=== PATIENT | male | born 1955 | race Caucasian/White ===

== ENCOUNTER 2019-02-10 08:23 | Observation (INO) ==
--- NOTE | 2019-02-10 11:08 | Cardiology Progress Note ---
Date of Service February 10, 2019 Results & Data Vital Signs (Past 12 Hours) Vital Signs Temp Pulse Resp BP Pulse Ox 02/10/19 08:55 36.7 C 72 20 160/98 H 97
--- NOTE | 2019-02-10 11:15 | Cardiology Consultation ---
Date of Consultation February 10, 2019 Assessment & Plan (1) Crescendo angina: Patient with increasing angina despite good medical therapies with recent stress testing reflecting increased ischemia in comparison to prior studies. Patient has known diffuse coronary artery disease. Plan given failed medical therapies to proceed with diagnostic cardiac catheterization assess for interventional targets. Procedure and risks explained in detail with the patient through the use of director economic. Informed consent obtained for procedure, coronary intervention if indicated and sedation. (2) CAD (coronary artery disease): (3) HTN (hypertension): (4) Dyslipidemia: (5) Abnormal nuclear stress test: History of Present Illness Reason for Consultation: Patient is a 63-year-old male [place]ican-speaking past medical history is notable for 1. Atherosclerotic coronary disease status post chronic bypass grafting 2001 for diffuse coronary artery disease receiving a MAZARIEGOS graft to the LAD diagonal, saphenous vein graft to the left anterior ascending saphenous vein graft sequentially to OM1 and posterior descending artery 2. Ischemic cardiomyopathy with old anterior infarct EF 4045% 3. Repeat cardiac catheterization May 2012 demonstrating occluded left internal mammary artery with patent grafts and diffuse coronary disease 4. Chronic class III angina pectoris 5. Hypertension 6. Chronic hepatic enzyme elevation with past intolerant of statin Patient presents today on referral after recent symptoms of worsening chest pain shortness of breath and angina pectoris. Patient is failed outpatient medical therapies on multiple times and recent stress testing reflected stress-induced inferior ischemia superimposed on prior known LV dysfunction. He is referred now for repeat coronary angiography to assess for interventional targets Requesting Physician: Nesha Sahu PA-C Attending Physician: Ezequiel Hay MD Allergies Allergy/AdvReac Type Severity Reaction Status Date / Time metoprolol Allergy Severe SHORTNESS Verified 01/30/19 11:09 OF BREATH-"STUFFY" NOSE carvedilol Allergy Unknown UNKNOWN Verified 01/30/19 11:09 REACTION ezetimibe [From Zetia] Allergy Unknown UNKNOWN Verified 01/30/19 11:09 REACTION pravastatin Allergy Unknown UNKNOWN Verified 01/30/19 11:09 REACTION Penicillins AdvReac Unknown "RENAL" Verified 01/30/19 11:09 PAIN Home Medications Home Medications Medication Instructions Recorded Confirmed Type amlodipine 2.5 mg PO DAILY 01/30/19 02/10/19 History losartan 50 mg PO DAILY 01/30/19 02/10/19 History aspirin [Aspir-81] 81 mg PO DAILY 02/10/19 02/10/19 History Patient History Medical History CAD (coronary artery disease) (Chronic) S/P CABG X4 (2001)- MAZARIEGOS-DX, SVG-LAD, SVG-OM, SVG- PDA AT [facility] Dyslipidemia (Chronic) Gastritis (Chronic) PRESCRIBED PPI BY GI GERD (gastroesophageal reflux disease) (Chronic) Hearing deficit (Chronic) HEARING AIDS HTN (hypertension) (Chronic) Insomnia Ischemic cardiomyopathy (Chronic) Numbness of leg LLE Obesity (Chronic) Osteoarthritis Prediabetes (Chronic) Surgical History History of cardiac cath 2012 [facility] History of cholecystectomy 05/17/1819 Grade 1 view with Glidescope 3 History of colonoscopy History of coronary artery bypass graft S/P CABG (2001) History of esophagogastroduodenoscopy (EGD) History of fracture of finger FRACTURE REPAIR; SUBSEQUENT I&D, LACERATION REPAIR OF OPEN LEFT 2ND DIGIT FRACTURE= 01/09/16= LMA#5 AT [facility] History of tonsillectomy History of tooth extraction Social History Preferred Language: [place]ican Communication Ability: Effective Tenant Selector Required: Yes Beliefs That Will Affect Care: None Current Living Situation: Spouse Current Living Situation Comment: Feels Safe at Home: Yes Safety Concerns: Feels Safe At This Time Smoking Status: Never smoker Second Hand Exposure: No ; Hx Alcohol Use: No Hx Substance Use: No Review of Systems Review of Systems: All systems reviewed & are unremarkable except as noted in HPI & below Physical Exam Constitutional: WD/WN, vitals as above + obese Eyes: PERRL, conjunctivae normal, anicteric sclerae ENMT: external ear and nose normal, oropharynx normal Neck: trachea midline, no thyromegaly + thick neck Respiratory: normal respiratory effort, lungs clear to auscultation Cardiovascular: Rate/Rhythm: regular rate and regular rhythm Heart Sounds: normal S1 and normal S2; no gallop and no murmur Palpation: normal PMI Vessels: normal carotid upstroke and radial pulses present; no JVD and no carotid bruit Extremities: no edema Gastrointestinal (Abdomen): normal bowel sounds, soft, nontender, no hepatosplenomegaly Musculoskeletal: no cyanosis or clubbing, extremities motor strength 5/5 Skin: no rashes, warm and dry Neurologic: PERRL, EOMI, accommodation nl, no face palsy, no dysarthria Psychiatric: A+Ox3, euthymic affect Results & Data Vital Signs (Past 12 Hours) Vital Signs Temp Pulse Resp BP Pulse Ox 02/10/19 08:55 36.7 C 72 20 160/98 H 97
[2019-02-10] MEDS ORDERED: NITROGLYCERIN/D5W 100MCG/ML 20ML SYR ONE (11:29)
[2019-02-10] MEDS ORDERED: MIDAZOLAM HCL 1 MG/ML 2ML VIAL ONE (11:29)
[2019-02-10] MEDS ORDERED: NiCARDipine HCL INJ 2.5 MG/ML 10 ML AMP ONE (11:29)
[2019-02-10] MEDS ORDERED: HEPARIN (PORCINE) 1000 UNIT/ML 10 ML (CATH LAB USE ONLY) ONE (11:29)
[2019-02-10] MEDS ORDERED: fentaNYL citrate 100 MCG/2 ML VIAL ONE (11:29)
--- NOTE | 2019-02-10 12:01 | Pre Anesthesia Assessment ---
Date of Service February 10, 2019 Pre Sedation Assessment Vital Signs Temp Pulse Resp BP Pulse Ox 02/10/19 08:55 36.7 C 72 20 160/98 H 97 Cardiovascular RRR, no murmur, no edema Respiratory normal respiratory effort, lungs clear to auscultation Pre-Sedation Airway Assessment Smoking Status: Never smoker Short, Thick Neck: No Thyromental Distance: > or= 3.5 Finger Breadths Oral Cavity: + WNL Mallampati Class: III ASA: ASA3 NPO Status Date of Last Intake of Fluids: 02/09/19 Date of Last Intake of Solid Food: 02/09/19 Notes The planned sedation has been discussed with the patient. Informed Consent was obtained. I have identified the patient, determined the appropriateness of sedation and have assessed the patient immediately prior to the procedure. All medicine(s) and interventions are by my order.
[2019-02-10] MEDS ORDERED: ACETAMINOPHEN 325 MG TAB PO PRN (13:20)
--- NOTE | 2019-02-10 13:26 | Cardiac Catheterization ---
Cardiac Cath Procedure: Brief Procedure Date February 10, 2019 Pre-Procedure Diagnosis Pre-Procedure Diagnosis: Angina and Positive Stress Test AUC Score AUC Score: 8 Post-Procedure Diagnosis Post-Procedure Diagnosis: Severe CAD Procedure(s) Performed Procedure(s) Performed: Coronary Angiography Obstetrics Technician Ezequiel Hay MD Freight Clerk(s) Karin Spaulding Estimated Blood Loss Estimated Blood Loss: <25 Medication(s) Medication(s): Fentanyl (12.5 mcg IV x 2), Heparin (5000 units IV), Lidocaine 1% (Local infiltration access site), Nicardipine (250 mcg intra-arterial after arterial sheath insertion and prior to removal) and Versed (1 mg IV x2) Preliminary Findings Right dominant coronary anatomy Severe [place] vessel coronary artery disease with 100% occlusion of the left anterior descending, left circumflex and distal right coronary artery Intact saphenous vein graft to left anterior descending Intact saphenous vein graft to the obtuse marginal and posterior descending artery with ostial narrowing of 50% Recommendations Recommendations: Medical Therapy and/or Counseling Specimens Specimens: None Fluids (cc crystalloids) Fluids (cc crystalloids): 115 Anesthesia Start time 1205, stop time 1302 Procedural Complication(s) None Disposition Recovery Room\PACU
--- NOTE | 2019-02-10 15:08 | Cardiac Catheterization ---
Cardiac Cath Procedure Full Procedure Date February 10, 2019 Pre-Procedure Diagnosis Pre-Procedure Diagnosis: Angina and Positive Stress Test AUC Score AUC Score: 8 Post-Procedure Diagnosis Post-Procedure Diagnosis: Severe CAD Procedure(s) Performed Procedure(s) Performed: Coronary Angiography Electronic Organ Technician Ezequiel Hay MD Bushing And Broach Operator(s) Karin Spaulding Estimated Blood Loss Estimated Blood Loss: <25 Medication(s) Medication(s): Fentanyl (12.5 mcg IV x 2), Heparin (5000 units IV), Lidocaine 1% (Local infiltration access site), Nicardipine (250 mcg intra-arterial after arterial sheath insertion and prior to removal) and Versed (1 mg IV x2) Summary of Findings Right dominant coronary anatomy Severe [place] vessel coronary artery disease with 100% occlusion of the proximal to mid left anterior descending, very proximal left circumflex and distal right coronary artery Intact saphenous vein graft to left anterior descending Intact saphenous vein graft to the obtuse marginal and posterior descending artery with ostial narrowing of 50% Right coronary artery in comparison to prior study demonstrates thrombotic mid vessel stenosis of 80% and complete occlusion at the acute margin. Hemodynamics Rest Ao:: 120/80/100 Final Ao: 122/71/96 LV: 120/18 Recommendations Recommendations: Medical Therapy and/or Counseling Specimens Specimens: None Radiation Exposure (mGy) 3629 Contrast (mls) 180 Fluids (cc crystalloids) Fluids (cc crystalloids): 115 Anesthesia Start time 1205, stop time 1302 Procedural Complication(s) None Disposition Recovery Room\PACU I attest to the content of the Intraoperative Record and any orders documented therein. Any exceptions are noted below. ACC Data: Cloth Cutter Cardiac Status Clinical evaluation leading to the procedure CAD Presenation: Positive Stress Test and Stable angina Anginal Classification: CCS III Heart Failure: No Cardiogenic Shock within 24 Hours: No Cardiac Arrest within 24 Hours: No Imaging Studies Past 6 Months: Yes Stress Studies Past 6 Months: Yes Standard Exercise Test: No Stress Echocardiogram: No Stress Testing w/SPECT MPI: Yes - Positive Coronary Anatomy Dominant: Right Left Main (% Stenosis): Ostial (20) LAD (% Stenosis): Proximal (70) and Mid (100%) D1 (% Stenosis): Proximal (80 with diffuse disease small vessel) Circumflex (% Stenosis): Ostial (100%) RCA (% Stenosis): Mid (80% thrombotic) and Distal (100% at acute margin) Grafts - LAD (%): Normal Grafts - Circumflex (%): Ostial (50%) Diagnostic Physicians Name: Ezequiel Hay MD Status: Elective Closure Device Percutaneous Entry Location: Radial Closure Device: Radial Band Recommendations: Medical Therapy and/or Counseling
[2019-02-10] MEDS ORDERED: ATROPINE SULFATE 0.1 MG/ML 10ML SYR IV ONE (16:17)
[2019-02-10] MEDS ORDERED: NITROGLYCERIN SL 0.4 MG/TAB TAB SL PRN (17:39)
--- NOTE | 2019-02-10 17:45 | Cardiology Progress Note ---
Date of Service February 10, 2019 Subjective Patient post diagnostic cardiac catheterization in the recovery area had an area of bleeding at initial access site which became controlled with hemo-band refill. During observation. However patient developed episode of acute bradycardia and vasovagal event responding to IV fluids. Still lightheaded on standing though blood pressure adequate EKG currently without acute changes Plan: Given severe coronary artery disease and transient postprocedural hemodynamic instability admit to telemetry for medication adjustments, maintain telemetry overnight Lab work and EKG ordered for morning Ultimate goals ongoing medical management Results & Data Vital Signs (Past 12 Hours) Vital Signs Temp Pulse Resp BP Pulse Ox 02/10/19 17:32 68 20 131/83 94 02/10/19 17:16 68 20 124/71 94 02/10/19 17:00 68 20 129/78 94 02/10/19 16:45 70 20 119/67 94 02/10/19 16:30 68 20 114/79 94 02/10/19 16:20 67 20 111/67 94 02/10/19 16:18 56 L 20 95/58 L 94 02/10/19 16:15 62 20 120/78 94 02/10/19 16:00 66 20 119/80 94 02/10/19 15:45 66 20 120/78 94 02/10/19 15:30 66 20 124/80 94 02/10/19 15:15 69 20 124/73 94 02/10/19 15:00 72 20 100/76 94 02/10/19 14:45 76 20 116/76 94 02/10/19 14:30 76 20 110/81 93 02/10/19 14:15 76 20 128/80 93 02/10/19 14:00 73 20 125/82 93 02/10/19 13:45 78 20 130/84 96 02/10/19 13:30 75 20 132/89 95 02/10/19 13:15 73 20 139/84 95 02/10/19 13:10 68 20 121/79 94 02/10/19 08:55 36.7 C 72 20 160/98 H 97
[2019-02-10] MEDS: AMLODIPINE BESYLATE 5 MG TAB PO SCH (21:11)
[2019-02-10] MEDS: SODIUM CHLORIDE 0.9% 1000ML 1,000 ML IV SCH (21:18)
[2019-02-11] MEDS: SODIUM CHLORIDE 0.9% 1000ML 1,000 ML IV SCH (06:48)
[2019-02-11] MEDS: AMLODIPINE BESYLATE 5 MG TAB PO SCH (08:18)
[2019-02-11] MEDS: ISOSORBIDE DINITRATE 20 MG TAB PO SCH ×2 (08:18→12:03)
[2019-02-11 08:23] LABS: Basophils # (auto) 0.02 K/uL (0-0.2); Basophils % (auto) 0.5 %; Eosinophils # (auto) 0.15 K/uL (0-0.5); Eosinophils % (auto) 3.7 %; Hematocrit (blood only) 45.2 % (42-52); Hemoglobin 15.5 g/dL (14.0-18.0); Immature Granulocytes # (auto) 0.01 K/uL (0.00-0.02); Immature Granulocytes % (auto) 0.2 %; Lymphocytes # (auto) 1.73 K/uL (1.2-3.4); Mean Corpuscular Hemoglobin 31.9 pg (25-34); Mean Corpuscular Hgb Conc 34.3 g/dL (32-36); Mean Platelet Volume 9.4 fL (7.4-10.4); Monocytes # (auto) 0.42 K/uL (0.11-0.59); Monocytes % (auto) 10.4 %; Neutrophils # (auto) 1.69 K/uL (1.4-6.5); Neutrophils % (auto) 42.2 %; Platelet Count 166 K/uL (130-400); RDW Coefficient of Variation 13.2 % (11.5-14.5); RDW Standard Deviation 45.3 fL (36.4-46.3); Red Blood Count 4.86 M/uL (4.7-6.1); White Blood Count 4.02 K/uL (4.8-10.8)
[2019-02-11 08:54] LABS: BUN Creatinine Ratio 10.2 (10-20); Calcium 9.1 mg/dl (8.5-10.1); Est GFR (African American) 99.5; Est GFR (Non-African American) 85.8
[2019-02-11] MEDS ORDERED: ASPIRIN 81 MG ECTAB PO SCH (09:00)
[2019-02-11 12:39] VITALS: BP 113/67; PULSE 66; TEMP 97.9; O2SAT 95
--- NOTE | 2019-02-11 13:31 | Cardiology Progress Note ---
Date of Service February 11, 2019 Assessment & Plan (1) Crescendo angina: Cardiac catheterization demonstrated severe [place] vessel disease without surgical or interventional targets. Plan will be to intensification of medical therapies. Specifically amlodipine increased to 2.5 mg twice per day. Isosorbide added at 20 mg p.o. twice daily. Patient already with sublingual nitroglycerin prescription for home. Patient to continue aspirin (2) CAD (coronary artery disease): (3) HTN (hypertension): (4) Dyslipidemia: (5) Abnormal nuclear stress test: Subjective Patient seen and examined, chart, medications, telemetry reviewed Patient is doing well this morning no acute complaints ambulatory in room and hallway without chest pain or shortness of breath. Right radial access site healed without bleeding or hematoma Mild headache but otherwise no complaints. Blood pressures well controlled on current medical regimen Physical Exam Constitutional: WD/WN, vitals as above + obese Eyes: PERRL, conjunctivae normal, anicteric sclerae ENMT: Mallampati Class: III Neck: trachea midline, no thyromegaly + thick neck Respiratory: normal respiratory effort, lungs clear to auscultation Cardiovascular: RRR, no murmur, no edema Rate/Rhythm: regular rate and regular rhythm Heart Sounds: normal S1 and normal S2; no gallop and no murmur Palpation: normal PMI Vessels: normal carotid upstroke and radial pulses present; no JVD and no carotid bruit Extremities: no edema Gastrointestinal (Abdomen): normal bowel sounds, soft, nontender, no hepatosplenomegaly Musculoskeletal: no cyanosis or clubbing, extremities motor strength 5/5 Skin: no rashes, warm and dry Neurologic: PERRL, EOMI, accommodation nl, no face palsy, no dysarthria Psychiatric: A+Ox3, euthymic affect Results & Data Vital Signs (Past 12 Hours) Vital Signs Temp Pulse Pulse Resp BP Pulse Ox 02/11/19 12:00 36.6 C 66 16 113/67 95 02/11/19 07:58 36.5 C 76 18 147/89 H 96 02/11/19 04:11 36.8 C 64 19 107/64 96 Laboratory Results Laboratory Results - last 24 hr 02/11/19 02/11/19 08:05 08:05 WBC 4.02 L RBC 4.86 Hgb 15.5 Hct 45.2 MCV 93.0 MCH 31.9 MCHC 34.3 RDW Std Deviation 45.3 RDW Coeff of Del 13.2 Plt Count 166 MPV 9.4 Immature Gran % (Auto) 0.2 Neut % (Auto) 42.2 Lymph % (Auto) 43.0 [place] % (Auto) 10.4 Eos % (Auto) 3.7 Baso % (Auto) 0.5 Immature Gran # (Auto) 0.01 Neut # (Auto) 1.69 Lymph # (Auto) 1.73 [place] # (Auto) 0.42 Eos # (Auto) 0.15 Baso # (Auto) 0.02 Sodium 139 Potassium 4.0 Chloride 106 Carbon Dioxide 29 Anion Gap 4.0 BUN 9 Creatinine 0.93 Est Cr Clr Drug Dosing 111.0 Est GFR ( Amer) 99.5 Est GFR (Non-Af Amer) 85.8 BUN/Creatinine Ratio 10.2 Glucose 109 H Calcium 9.1 Specimen Hemolysis
--- NOTE | 2019-02-11 13:31 | Discharge Summary ---
Date of Service February 11, 2019 Admission HPI Per Admitting Provider Patient is a 63-year-old male Italian-speaking past medical history is notable for 1. Atherosclerotic coronary disease status post chronic bypass grafting 2001 for diffuse coronary artery disease receiving a MAZARIEGOS graft to the LAD diagonal, saphenous vein graft to the left anterior ascending saphenous vein graft sequentially to OM1 and posterior descending artery 2. Ischemic cardiomyopathy with old anterior infarct EF 4045% 3. Repeat cardiac catheterization May 2012 demonstrating occluded left internal mammary artery with patent grafts and diffuse coronary disease 4. Chronic class III angina pectoris 5. Hypertension 6. Chronic hepatic enzyme elevation with past intolerant of statin Patient presents today on referral after recent symptoms of worsening chest pain shortness of breath and angina pectoris. Patient is failed outpatient medical therapies on multiple times and recent stress testing reflected stress-induced inferior ischemia superimposed on prior known LV dysfunction. He is referred now for repeat coronary angiography to assess for interventional targets Requesting Physician: Nesha Sahu PA-C Attending Physician: Ezequiel Hay MD Admission Exam (Per Admitting) Constitutional WD/WN, vitals as above + obese Eyes PERRL, conjunctivae normal, anicteric sclerae ENMT external ear and nose normal, oropharynx normal Mallampati Class: III Neck trachea midline, no thyromegaly + thick neck Respiratory normal respiratory effort, lungs clear to auscultation Cardiovascular RRR, no murmur, no edema Rate/Rhythm: regular rate and regular rhythm Heart Sounds: normal S1 and normal S2; no gallop and no murmur Palpation: normal PMI Vessels: normal carotid upstroke and radial pulses present; no JVD and no carotid bruit Extremities: no edema Gastrointestinal (Abdomen) normal bowel sounds, soft, nontender, no hepatosplenomegaly Musculoskeletal no cyanosis or clubbing, extremities motor strength 5/5 Skin no rashes, warm and dry Neurologic PERRL, EOMI, accommodation nl, no face palsy, no dysarthria Psychiatric A+Ox3, euthymic affect Discharge Data Procedures Performed Operation Date: 02/10/19 09:30 Actual Procedures s Cineradiography w/Routine Exam - Ezequiel Hay MD p Cath, Left w/Cors Vent Grafts(Not Applicable) - Ezequiel Hay MD Hospital Course (1) Crescendo angina: Cardiac catheterization demonstrated severe [place] vessel disease without surgical or interventional targets. All 3 [place] vessels occluded. Saphenous vein graft intact to the left anterior descending and saphenous vein graft intact to the obtuse marginal and PDA. Plan will be to intensification of medical therapies. Patient while recovering from procedure had transient vagal event with hypotension and bradycardia. In association with bleeding at access site. Patient recovered without significant intervention however was referred for admission and observation overnight given transient hemodynamics instability and significant [place] vessel disease noted Specifically amlodipine increased to 2.5 mg twice per day. Isosorbide added at 20 mg p.o. twice daily. Patient already with sublingual nitroglycerin pres cription for home. Patient to continue aspirin (2) CAD (coronary artery disease): (3) HTN (hypertension): (4) Dyslipidemia: (5) Abnormal nuclear stress test: Discharge Instructions Post cardiac catheterization recommendations given
== END 2019-02-11 14:43 | disposition home or self-care (01) ==
LOC: 2S 08:23 → CC 08:23

== ENCOUNTER 2019-04-16 18:11 | Inpatient (IN) ==
[2019-04-16] MEDS ORDERED: ONDANSETRON INJ 2 MG/ML 2 ML VIAL IV STA (18:31)
[2019-04-16] MEDS ORDERED: FAMOTIDINE 20MG/5ML IV PUSH IV STA (18:31)
[2019-04-16] MEDS ORDERED: MoRPHine SULFATE 4 MG/ML 1 ML CARP\\VIAL IV STA (18:31)
[2019-04-16] MEDS ORDERED: SODIUM CHLORIDE 0.9% 500 ML IV SCH (18:45)
[2019-04-16 19:12] LABS: Basophils # (auto) 0.02 K/uL (0-0.2); Basophils % (auto) 0.5 %; Eosinophils # (auto) 0.14 K/uL (0-0.5); Eosinophils % (auto) 3.5 %; Hematocrit (blood only) 42.1 % (42-52); Immature Granulocytes # (auto) 0.01 K/uL (0.00-0.02); Immature Granulocytes % (auto) 0.2 %; Lymphocytes # (auto) 1.93 K/uL (1.2-3.4); Mean Corpuscular Hemoglobin 31.6 pg (25-34); Mean Corpuscular Hgb Conc 35.6 g/dL (32-36); Mean Corpuscular Volume 88.6 fL (80-100); Mean Platelet Volume 9.4 fL (7.4-10.4); Monocytes # (auto) 0.42 K/uL (0.11-0.59); Monocytes % (auto) 10.4 %; Neutrophils % (auto) 37.4 %; Platelet Count 178 K/uL (130-400); RDW Coefficient of Variation 12.9 % (11.5-14.5); RDW Standard Deviation 42.2 fL (36.4-46.3); Red Blood Count 4.75 M/uL (4.7-6.1); White Blood Count 4.02 K/uL (4.8-10.8)
[2019-04-16 19:20] LABS: Alanine Aminotransferase 85 U/L (12-78); Albumin Level 3.8 gm/dl (3.4-5.0); Aspartate Aminotransferase 35 U/L (15-37); BUN Creatinine Ratio 9.2 (10-20); Blood Urea Nitrogen 8 mg/dl (7-18); Calcium 8.7 mg/dl (8.5-10.1); Carbon Dioxide 27 mmol/L (21-32); Chloride 103 mmol/L (98-107); Creatinine Clr Calc Pharmacy 118.5 ml/min; Est GFR (African American) 105.7; Est GFR (Non-African American) 91.2; Glucose 99 mg/dl (70-99); Lipase 97 U/L (73-393); Potassium 3.7 mmol/L (3.5-5.1); Sodium 136 mmol/L (136-145)
[2019-04-16] MEDS ORDERED: IOVERSOL 100ml IV PRN (19:24)
[2019-04-16 19:25] LABS: Alkaline Phosphatase 52 U/L (45-117); Bilirubin,Total 0.9 mg/dl (0.2-1); Total Protein 7.8 gm/dl (6.4-8.2); Troponin I < 0.015 ng/ml (0-0.045)
--- NOTE | 2019-04-16 19:25 | XRay Report ---
XR chest 1V portable CLINICAL HISTORY: Epigastric pain COMPARISON STUDY: 09/16/2015 FINDINGS: The heart remains enlarged. There are postsurgical changes of a midline sternotomy. There i s no failure. There is no lobar consolidation. There are no pleural effusions. There are subsegmental atelectatic changes at both lung bases.[There is no free intraperitoneal air. IMPRESSION: Cardiomegaly and basilar atelectasis. No acute findings. ACT 112: Negative or not required by law. Electronically signed by: Roberto Regalado M.D. 04/16/2019 7:23 PM
--- NOTE | 2019-04-16 20:19 | CT Scan Report ---
CT abd pelvis IV con only CLINICAL HISTORY: Epigastric pain. Recent endoscopy. COMPARISON STUDY: January 30, 2019 TECHNIQUE: The patient was scanned in a dynamic helical fashion during intravenous administration of 93 cc of Optiray 320. A dose lowering technique was utilized adhering to the principles of ALARA. CT DOSE: 1116.07 mGycm FINDINGS: Lower chest: There is minimal basilar atelectasis/scarring. There are no significant pleural effusion s. There is no pneumomediastinum visualized at the lung bases. Liver: There is hepatic steatosis. No focal hepatic masses are visualized. Gallbladder: Surgically absent Spleen: Normal in size and attenuation. Pancreas: Unremarkable. Adrenal glands: Unremarkable. Kidneys: There are bilateral renal cysts, the largest of which measures 4 cm and arises from the lowe r pole of the right kidney. There is no hydronephrosis. Bowel: There are no transition zones to indicate bowel obstruction. The appendix appears normal. Ther e is no acute diverticulitis. Peritoneum: There is no intraperitoneal free air or abdominal ascites. There are small fat-containing inguinal hernias. There is a tiny fat-containing umbilical hernia. Vasculature: The abdominal aorta is normal in course and caliber. Adenopathy: None. Pelvic viscera: There is mild prostatic enlargement. There are prostatic calcifications present. Skeletal structures: No destructive osseous lesions are seen. IMPRESSION: 1. No acute intra-abdominal or pelvic findings 2. No evidence of bowel obstruction. No evidence of free air 3. Normal appendix. No evidence of acute diverticulitis 4. No acute inflammatory changes 5. Hepatic steatosis 6. Bilateral renal cysts ACT 112: Negative or not required by law. Electronically signed by: Roberto Regalado M.D. 04/16/2019 8:18 PM
[2019-04-16] MEDS ORDERED: SUCRALFATE 1 GM/10 ML UDC PO STA (20:37)
[2019-04-16] MEDS ORDERED: NITROGLYCERIN 2% OINTMENT 30GM TUBE EXT STA (20:50)
[2019-04-16] MEDS ORDERED: ASPIRIN CHEW 324 MG PO STA (20:50)
--- NOTE | 2019-04-16 22:27 | History & Physical Report ---
Date of Service April 16, 2019 Assessment & Plan (1) Chest pain, precordial: Unstable angina hx CAD status post CABG History isosorbide intolerance/noncompliance as per records Symptoms can be attributed to patient intolerance for optimal medical regimen (beta-yonas/statin/nitrate intolerance) for ischemic heart disease. hypertension, stable hyperlipidemia, statin intolerance prediabetes as per records, outpatient hemoglobin A1c of 5.8 2018 possible GERD/esophageal spasm as per records, some improvement with outpatient PPI regimen past tobacco abuse OBS PCU Continue Aspirin for secondary CAD prevention Follow troponin TTE, Cardiology consult RE unstable angina Reattempt Isosorbide Rx Continue home PPI DVT prophylaxis per Lovenox subcu Full code Patient son requesting updates from providers. Mr. Parth Arias, contact #[phone]. History of Present Illness Chief Complaint: Chest pain Primary Care Provider: Nesha Sahu PA-C History obtained from patient, family, and records. History somewhat limited from patient secondary to language barrier. Medical history significant for CAD status post CABG, hypertension, hy perlipidemia, prediabetes as per records, possible GERD/esophageal spasm as per records, past tobacco abuse. Recent confinement January 2019 under Cardiology service for crescendo angina. Cardiac catheterization demonstrated severe [place] vessel disease without surgical or interventional targets. Recommendation was to intensify medical therapy for ischemic heart disease. Patient intolerant of home isosorbide Rx due to headache symptoms. Last month, patient noted epigastric discomfort. Some improvement with outpatient PPI Rx. GI sent patient for esophageal manometry and 24-hour pH testing a few days ago for esophageal spasm/GERD consideration. Patient [place] [facility] [place] 10 days ago. Patient still complaining of almost daily chest pain similar to heart attack episode with some shortness of breath. Recommendation for possible Ranexa if symptoms worsen in light of isosorbide intolerance. Patient brought to the ER for evaluation of epigastric discomfort and worsening chest pain complaints. Some relief of discomfort with sucralfate, famotidine, and nitro administration. MEDICAL HISTORY: As above. EGD 03/2018 showed hiatal hernia. SURGICAL HISTORY: CABG, cholecystectomy, tonsillectomy FAMILY HISTORY: Heart disease. Hypertension PERSONAL AND SOCIAL HISTORY: Past tobacco abuse. No chronic alcoholic beverages. Retired from factory work. Originally from [place]. Allergies Allergy/AdvReac Type Severity Reaction Status Date / Time metoprolol Allergy Severe SHORTNESS Verified 04/16/19 19:19 OF BREATH-"STUFFY" NOSE carvedilol Allergy Unknown UNKNOWN Verified 04/16/19 19:19 REACTION ezetimibe [From Zetia] Allergy Unknown UNKNOWN Verified 04/16/19 19:19 REACTION pravastatin Allergy Unknown UNKNOWN Verified 04/16/19 19:19 REACTION Penicillins AdvReac Unknown "RENAL" Verified 04/16/19 19:19 PAIN Home Medications Home Medications Medication Instructions Recorded Confirmed Type losartan 50 mg PO DAILY 01/30/19 04/16/19 History amlodipine 2.5 mg PO BID #0 tab 02/10/19 04/16/19 Rx aspirin [Aspir-81] 81 mg PO DAILY 02/10/19 04/16/19 History isosorbide dinitrate 20 mg PO BID@0700,1200 #30 tab 02/11/19 04/16/19 Rx ammonium lactate [Skin Treatment] 1 applic TOPICAL UD 04/16/19 04/16/19 History omeprazole 20 mg PO BID 04/16/19 04/16/19 History silver sulfadiazine [SSD] 1 applic TOPICAL DAILY 04/16/19 04/16/19 History urea 1 applic TOPICAL DAILY 04/16/19 04/16/19 History Past Med/Surg History Medical History CAD (coronary artery disease) (Chronic) S/P CABG X4 (2001)- MAZARIEGOS-DX, SVG-LAD, SVG-OM, SVG- PDA AT [place] Dyslipidemia (Chronic) Gastritis (Chronic) PRESCRIBED PPI BY GI GERD (gastroesophageal reflux disease) (Chronic) Hearing deficit (Chronic) HEARING AIDS HTN (hypertension) (Chronic) Insomnia Ischemic cardiomyopathy (Chronic) Numbness of leg LLE Obesity (Chronic) Osteoarthritis Prediabetes (Chronic) Surgical History History of cardiac cath 2012 [facility] History of cholecystectomy 05/17/1819 Grade 1 view with Glidescope 3 History of colonoscopy History of coronary artery bypass graft S/P CABG (2001) History of esophagogastroduodenoscopy (EGD) History of fracture of finger FRACTURE REPAIR; SUBSEQUENT I&D, LACERATION REPAIR OF OPEN LEFT 2ND DIGIT FRACTURE= 01/09/16= LMA#5 AT [facility] History of tonsillectomy History of tooth extraction Family History Other No pertinent family history Social History Preferred Language: Vincentian Communication Ability: Effective 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 Beliefs That Will Affect Care: None Current Living Situation: Spouse Current Living Situation Comment: Other Information That Helps Us Care for You: No Feels Safe at Home: Yes Safety Concerns: Feels Safe At This Time Smoking Status: Never smoker Do You Dip or Chew Tobacco: No ; Second Hand Exposure: No ; Tobacco Cessation Education Requested by Patient: No Hx Alcohol Use: No Hx Substance Use: No Review of Systems Review of Systems: Limited due to language barrier Physical Exam Physical Exam: GENERAL: Comfortable, obese, slightly irate, no respiratory distress SKIN: Normal color, warm HEENT: Healed forehead scar, pink palpebral conjunctivae, no ptosis, dry buccal mucosa NECK : Supple, short neck, no tenderness CHEST : CTA, no tenderness HEART : RRR, no obvious murmurs ABDOMEN: Some distention, no overt tenderness EXTREMITIES : No LE swelling/tenderness, no other conspicuous deformities noted NEUROLOGIC : Coherent, no facial asymmetry, no other gross focality Results & Data Vital Signs (Past 12 Hours) Vital Signs Temp Pulse Pulse Resp BP BP Pulse Ox 04/16/19 21:50 90 04/16/19 21:40 90 04/16/19 21:31 93 04/16/19 21:30 131/77 94 04/16/19 21:20 94 04/16/19 21:10 95 04/16/19 21:02 128/84 92 04/16/19 21:01 76 20 128/84 94 04/16/19 19:40 94 04/16/19 19:31 67 93 04/16/19 19:30 69 136/88 93 04/16/19 19:20 98 04/16/19 19:10 94 04/16/19 19:04 67 133/87 94 04/16/19 19:02 64 04/16/19 18:50 64 26 H 04/16/19 18:48 67 20 04/16/19 18:15 36.5 C 69 20 144/83 H 94 Laboratory Results Laboratory Results WBC 4.02 K/uL (4.8-10.8) L 04/16/19 18:52 RBC 4.75 M/uL (4.7-6.1) 04/16/19 18:52 Hgb 15.0 g/dL (14.0-18.0) 04/16/19 18:52 Hct 42.1 % (42-52) 04/16/19 18:52 MCV 88.6 fL (80-100) 04/16/19 18: MCH 31.6 pg (25-34) 04/16/19 18: MCHC 35.6 g/dL (32-36) 04/16/19 18:52 RDW Std Deviation 42.2 fL (36.4-46.3) 04/16/19 18: RDW Coeff of Del 12.9 % (11.5-14.5) 04/16/19: Plt Count 178 K/uL (130-400) 04/16/19 18: MPV 9.4 fL (7.4-10.4) 04/16/19 18:52 Immature Gran % (Auto) 0.2 % 04/16/19 18:52 Neut % (Auto) 37.4 % 04/16/19 18:52 Lymph % (Auto) 48.0 % 04/16/19 18:52 [place] % (Auto) 10.4 % 04/16/19 18:52 Eos % (Auto) 3.5 % 04/16/19 18:52 Baso % (Auto) 0.5 % 04/16/19 18:52 Immature Gran # (Auto) 0.01 K/uL (0.00-0.02) 04/16/19 18:52 Neut # (Auto) 1.50 K/uL (1.4-6.5) 04/16/19 18:52 Lymph # (Auto) 1.93 K/uL (1.2-3.4) 04/16/19 18:52 [place] # (Auto) 0.42 K/uL (0.11-0.59) 04/16/19 18:52 Eos # (Auto) 0.14 K/uL (0-0.5) 04/16/19 18:52 Baso # (Auto) 0.02 K/uL (0-0.2) 04/16/19 18:52 Sodium 136 mmol/L (136-145) 04/16/19 18:48 Potassium 3.7 mmol/L (3.5-5.1) 04/16/19 18:48 Chloride 103 mmol/L (98-107) 04/16/19 18:48 Carbon Dioxide 27 mmol/L (21-32) 04/16/19 18:48 Anion Gap 6.0 (3-11) 04/16/19 18:48 BUN 8 mg/dl (7-18) 04/16/19 18:48 Creatinine 0.84 mg/dl (0.6-1.4) 04/16/19 18:48 Est Cr Clr Drug Dosing 118.5 ml/min 04/16/19 18:48 Est GFR ( Amer) 105.7 04/16/19 18:48 Est GFR (Non-Af Amer) 91.2 04/16/19 18:48 BUN/Creatinine Ratio 9.2 (10-20) L 04/16/19 18:48 Glucose 99 mg/dl (70-99) 04/16/19 18:48 Calcium 8.7 mg/dl (8.5-10.1) 04/16/19 18:48 Total Bilirubin 0.9 mg/dl (0.2-1) 04/16/19 18:48 AST 35 U/L (15-37) 04/16/19 18:48 ALT 85 U/L (12-78) H 04/16/19 18:48 Alkaline Phosphatase 52 U/L (45-117) 04/16/19 18:48 Troponin I < 0.015 ng/ml (0-0.045) 04/16/19 18:48 Total Protein 7.8 gm/dl (6.4-8.2) 04/16/19 18:48 Albumin 3.8 gm/dl (3.4-5.0) 04/16/19 18:48 Globulin 4.0 gm/dl (2.5-4.0) 04/16/19 18:48 Albumin/Globulin Ratio 1.0 (0.9-2) 04/16/19 18:48 Lipase 97 U/L (73-393) 04/16/19 18:48 Diagnostic Findings Chest x-ray : Cardiomegaly and basilar atelectasis. No acute findings. CT abdomen pelvis: 1. No acute intra-abdominal or pelvic findings 2. No evidence of bowel obstruction. No evidence of free air 3. Normal appendix. No evidence of acute diverticulitis 4. No acute inflammatory changes 5. Hepatic steatosis 6. Bilateral renal cysts EKG as per my interpretation : Rate 65, LAD, LAFB, incomplete RBBB, no ischemia, PVCs
[2019-04-16 22:52] LABS: Troponin I < 0.015 ng/ml (0-0.045)
--- NOTE | 2019-04-16 23:31 | Emergency Department Note ---
Entered by Sinai Pope acting as a scribe for Yaniv Crenshaw MD History of Present Illness General Chief complaint: Abdominal Pain Stated complaint: STOMACH PAINS Time Seen by Provider: 04/16/19 18:26 Source: patient History of Present Illness Onset (ago): day(s) (yesterday) Location: abdomen Radiation: non-radiation Pain Consistency: + other (worsened) Maximum Pain Intensity: 10 Exacerbated By: + eating and + other (breathing in) Associated symptoms: + denies other symptoms (diarrhea); no nausea/vomiting The patient is a 64 year old male who presents to the Emergency Room with complaints of worsened upper abdominal pain following a GI procedure that took place yesterday at [facility]. The patient reports the pain was there before the procedure. He notes the procedure was performed due to high acidity. The patient reports the pain is a 6-8/10. He states the pain does not radiate anywhere in the body. He states the pain is worsened with eating and breathing i n. The patient denies nausea, vomiting, and diarrhea. The patient notes he is taking omeprazole which has helped somewhat. He reports a history of a cholecystectomy. The patient states he wishes to use his son as an vault attendant and not an interpretation device. Home Medications Home Medications Medication Instructions Recorded Confirmed Type losartan 50 mg PO DAILY 01/30/19 04/16/19 History amlodipine 2.5 mg PO BID #0 tab 02/10/19 04/16/19 Rx aspirin [Aspir-81] 81 mg PO DAILY 02/10/19 04/16/19 History isosorbide dinitrate 20 mg PO BID@0700,1200 #30 tab 02/11/19 04/16/19 Rx ammonium lactate [Skin Treatment] 1 applic TOPICAL UD 04/16/19 04/16/19 History omeprazole 20 mg PO BID 04/16/19 04/16/19 History silver sulfadiazine [SSD] 1 applic TOPICAL DAILY 04/16/19 04/16/19 History urea 1 applic TOPICAL DAILY 04/16/19 04/16/19 History Allergies Allergy/AdvReac Type Severity Reaction Status Date / Time metoprolol Allergy Severe SHORTNESS Verified 04/16/19 19:19 OF BREATH-"STUFFY" NOSE carvedilol Allergy Unknown UNKNOWN Verified 04/16/19 19:19 REACTION ezetimibe [From Zetia] Allergy Unknown UNKNOWN Verified 04/16/19 19:19 REACTION pravastatin Allergy Unknown UNKNOWN Verified 04/16/19 19:19 REACTION Penicillins AdvReac Unknown "RENAL" Verified 04/16/19 19:19 PAIN Past Med/Surg History Medical History CAD (coronary artery disease) (Chronic) S/P CABG X4 (2001)- MAZARIEGOS-DX, SVG-LAD, SVG-OM, SVG- PDA AT [place] Dyslipidemia (Chronic) Gastritis (Chronic) PRESCRIBED PPI BY GI GERD (gastroesophageal reflux disease) (Chronic) Hearing deficit (Chronic) HEARING AIDS HTN (hypertension) (Chronic) Insomnia Ischemic cardiomyopathy (Chronic) Numbness of leg LLE Obesity (Chronic) Osteoarthritis Prediabetes (Chronic) Surgical History History of cardiac cath 2013 [facility] History of cholecystectomy 05/17/1819 Grade 1 view with Glidescope 3 History of colonoscopy History of coronary artery bypass graft S/P CABG (2001) History of esophagogastroduodenoscopy (EGD) History of fracture of finger FRACTURE REPAIR; SUBSEQUENT I&D, LACERATION REPAIR OF OPEN LEFT 2ND DIGIT FRACTURE= 01/09/16= LMA#5 AT [facility] History of tonsillectomy History of tooth extraction Family History Other No pertinent family history Social History Preferred Language: Nigerian Communication Ability: Effective Vitreo Retinal Surgeon Required: No Beliefs That Will Affect Care: None Current Living Situation: Spouse Current Living Situation Comment: Other Information That Helps Us Care for You: No Feels Safe at Home: Yes Safety Concerns: Feels Safe At This Time Smoking Status: Never smoker Do You Dip or Chew Tobacco: No ; Second Hand Exposure: No ; Tobacco Cessation Education Requested by Patient: No Hx Alcohol Use: No Hx Substance Use: No Review of Systems See HPI for pertinent positives & negatives. and A total of 10 systems reviewed and were otherwise negative Physical Exam Vital Signs Vital Signs - 24 hr 04/16/19 18:15 04/16/19 18:45 04/16/19 18:48 Temperature 36.5 C Temperature Source Oral Pulse Rate 69 67 Pulse Rate [Finger] Pulse Rate from SpO2 Sensor Pulse Rhythm Regular Pulse Strength Normal Respiratory Rate 20 20 Respiratory Effort / Characteristics Non-Labored Respiratory Depth Normal Respiratory Pattern Regular Blood Pressure 144/83 H Blood Pressure [Right Arm] Blood Pressure Mean 103 Blood Pressure Mean [Right Arm] Blood Pressure Position Sitting Pulse Oximetry 94 Oxygen Delivery Method Room Air Room Air Room Air Sepsis Recent Fever Within 48 Hours No Sepsis New/Unexplained Change in Mental Status No Sepsis Action Taken by Nursing No Action Required 04/16/19 18:50 04/16/19 19:02 04/16/19 19:04 Temperature Temperature Source Pulse Rate 64 64 67 Pulse Rate [Finger] Pulse Rate from SpO2 Sensor 70 Pulse Rhythm Pulse Strength Respiratory Rate 26 H Respiratory Effort / Characteristics Respiratory Depth Respiratory Pattern Blood Pressure 133/87 Blood Pressure [Right Arm] Blood Pressure Mean 98 Blood Pressure Mean [Right Arm] Blood Pressure Position Pulse Oximetry 94 Oxygen Delivery Method Room Air Room Air Room Air Sepsis Recent Fever Within 48 Hours Sepsis New/Unexplained Change in Mental Status Sepsis Action Taken by Nursing 04/16/19 19:10 04/16/19 19:20 04/16/19 19:30 Temperature Temperature Source Pulse Rate 69 Pulse Rate [Finger] Pulse Rate from SpO2 Sensor 73 63 69 Pulse Rhythm Pulse Strength Respiratory Rate Respiratory Effort / Characteristics Respiratory Depth Respiratory Pattern Blood Pressure 136/88 Blood Pressure [Right Arm] Blood Pressure Mean 100 Blood Pressure Mean [Right Arm] Blood Pressure Position Pulse Oximetry 94 98 93 Oxygen Delivery Method Room Air Room Air Room Air Sepsis Recent Fever Within 48 Hours Sepsis New/Unexplained Change in Mental Status Sepsis Action Taken by Nursing 04/16/19 19:31 04/16/19 19:40 04/16/19 21:01 Temperature Temperature Source Pulse Rate 67 Pulse Rate [Finger] 76 Pulse Rate from SpO2 Sensor 67 67 75 Pulse Rhythm Pulse Strength Respiratory Rate 20 Respiratory Effort / Characteristics Respiratory Depth Respiratory Pattern Blood Pressure Blood Pressure [Right Arm] 128/84 Blood Pressure Mean Blood Pressure Mean [Right Arm] 98 Blood Pressure Position Pulse Oximetry 93 94 94 Oxygen Delivery Method Room Air Room Air Room Air Sepsis Recent Fever Within 48 Hours Sepsis New/Unexplained Change in Mental Status Sepsis Action Taken by Nursing 04/16/19 21:02 04/16/19 21:10 04/16/19 21:20 Temperature Temperature Source Pulse Rate Pulse Rate [Finger] Pulse Rate from SpO2 Sensor 70 68 61 Pulse Rhythm Pulse Strength Respiratory Rate Respiratory Effort / Characteristics Respiratory Depth Respiratory Pattern Blood Pressure 128/84 Blood Pressure [Right Arm] Blood Pressure Mean 95 Blood Pressure Mean [Right Arm] Blood Pressure Position Pulse Oximetry 92 95 94 Oxygen Delivery Method Room Air Room Air Room Air Sepsis Recent Fever Within 48 Hours Sepsis New/Unexplained Change in Mental Status Sepsis Action Taken by Nursing 04/16/19 21:30 04/16/19 21:31 04/16/19 21:40 Temperature Temperature Source Pulse Rate Pulse Rate [Finger] Pulse Rate from SpO2 Sensor 60 63 66 Pulse Rhythm Pulse Strength Respiratory Rate Respiratory Effort / Characteristics Respiratory Depth Respiratory Pattern Blood Pressure 131/77 Blood Pressure [Right Arm] Blood Pressure Mean 96 Blood Pressure Mean [Right Arm] Blood Pressure Position Pulse Oximetry 94 93 90 Oxygen Delivery Method Room Air Room Air Room Air Sepsis Recent Fever Within 48 Hours Sepsis New/Unexplained Change in Mental Status Sepsis Action Taken by Nursing 04/16/19 21:50 04/16/19 22:00 04/16/19 22:01 Temperature Temperature Source Pulse Rate Pulse Rate [Finger] Pulse Rate from SpO2 Sensor 64 67 66 Pulse Rhythm Pulse Strength Respiratory Rate Respiratory Effort / Characteristics Respiratory Depth Respiratory Pattern Blood Pressure 140/79 Blood Pressure [Right Arm] Blood Pressure Mean 85 Blood Pressure Mean [Right Arm] Blood Pressure Position Pulse Oximetry 90 94 94 Oxygen Delivery Method Room Air Room Air Room Air Sepsis Recent Fever Within 48 Hours Sepsis New/Unexplained Change in Mental Status Sepsis Action Taken by Nursing GENERAL: Patient is in no acute distress. HEENT: No acute trauma, normocephalic atraumatic, mucous membranes moist, no nasal congestion, no scleral icterus. NECK: No stridor, no adenopathy, no meningismus, trachea is midline. LUNGS: Clear to auscultation bilaterally, no wheeze, no rhonchi, breath sounds equal. HEART: Without murmurs gallops or rubs, regular rate and rhythm. ABDOMEN: Moderate tenderness in the epigastrium and right upper quadrant. Soft, bowel sounds positive, no hernias, no peritonitis. EXTREMITIES: No cyanosis or edema, full range of motion of all the joints without pain or difficulty, no signs for acute trauma. NEUROLOGIC: Oriented x 3, no acute motor or sensory deficits, no focal weakness. SKIN: No rash, no jaundice, no diaphoresis. Course Course 1829: Past medical records reviewed. The patient was evaluated in room B05. A complete history and physical exam was performed. 2039: I spoke with Dr. Vaughan - [facility] who states the patient had an endoscopy several weeks ago. He states the patient had a pH test a few days ago but they do not have the results yet. He recommended to increase the patient's P rilosec to twice a day and place him on Carafate twice a day. 2044: Upon reevaluation, the patient is reporting exertional pain with walking. 2054: Upon reevaluation, I discussed findings and results with the patient. He verbalized agreement of the treatment plan. I spoke with Dr. Alexandra of the [facility] Hospitalist Service. The patient will be evaluated for further management and care. Administered Medications Amlodipine Besylate (Norvasc) 2.5 mg PO BID JACQUELINE Stop: 05/17/19 00:00 Last Admin: 04/17/19 00:20 Dose: 2.5 mg Documented by: [id number] Potassium Chloride/Sodium Chloride (Normal Saline W/20 Meq Kcl) 20 meq in 1,000 mls @ 50 mls/hr IV .Q20H ONE Stop: 04/17/19 19:59 Last Admin: 04/17/19 00:20 Dose: 50 mls/hr Documented by: [id number] Pantoprazole Sodium (Protonix) 40 mg PO BID JACQUELINE Stop: 05/17/19 00:00 Last Admin: 04/17/19 00:20 Dose: 40 mg Documented by: [id number] Discontinued Medications Aspirin (Aspirin) 324 mg PO NOW STA Stop: 04/16/19 20:51 Last Admin: 04/16/19 21:00 Dose: 324 mg Documented by: [id number] Famotidine (Pepcid 20mg Iv Push) 20 mg IV ONE STA Stop: 04/16/19 18:32 Last Admin: 04/16/19 19:02 Dose: 20 mg Documented by: [id number] Sodium Chloride (Nss) 500 mls @ 999 mls/hr IV .Q31M JACQUELINE Stop: 04/16/19 19:15 Last Infusion: 04/16/19 19:35 Dose: 0 mls/hr Documented by: [id number] Admin: 04/16/19 19:01 Dose: 999 mls/hr Documented by: [id number] Ioversol (Optiray 320 100ml) 93 ml IV ONCE PRN PRN Reason: Interaction Checking Stop: 04/17/19 00:00 Last Admin: 04/16/19 19:24 Dose: 1 ml Documented by: [id number] Morphine Sulfate (Morphine Sulfate) 4 mg IV NOW STA Stop: 04/16/19 18:32 Last Admin: 04/16/19 19:01 Dose: 4 mg Documented by: [id number] Nitroglycerin (Nitro-Bid 2%) 1 inch EXT NOW STA Stop: 04/16/19 20:51 Last Admin: 04/16/19 21:00 Dose: 1 inch Documented by: [id number] Ondansetron HCl (Zofran) 4 mg IV NOW STA Stop: 04/16/19 18:32 Last Admin: 04/16/19 19:01 Dose: 4 mg Documented by: [id number] Sucralfate (Carafate) 1 gm PO NOW STA Stop: 04/16/19 20:38 Last Admin: 04/16/19 21:04 Dose: 1 gm Documented by: [id number] Medical Decision Making Differential Diagnosis Differential diagnosis: ulcer, gastritis, bowel perforation, pancreatitis, TN angina, free air, diverticulitis Medical Records Attestation: I reviewed the patient's medical records. Home Medications Current Medication List: was personally reviewed by me Laboratory Data Attestation: I reviewed the patient's lab results. Result diagrams: 04/16/19 18:52 04/16/19 18:48 Lab Results 04/16/19 04/16/19 04/16/19 Range/Units 18:48 18:52 22:22 WBC 4.02 L (4.8-10.8) K/uL RBC 4.75 (4.7-6.1) M/uL Hgb 15.0 (14.0-18.0) g/dL Hct 42.1 (42-52) % MCV 88.6 (80-100) fL MCH 31.6 (25-34) pg MCHC 35.6 (32-36) g/dL RDW Std Deviation 42.2 (36.4-46.3) fL RDW Coeff of Del 12.9 (11.5-14.5) % Plt Count 178 (130-400) K/uL MPV 9.4 (7.4-10.4) fL Immature Gran % (Auto) 0.2 % Neut % (Auto) 37.4 % Lymph % (Auto) 48.0 % [place] % (Auto) 10.4 % Eos % (Auto) 3.5 % Baso % (Auto) 0.5 % Immature Gran # (Auto) 0.01 (0.00-0.02) K/uL Neut # (Auto) 1.50 (1.4-6.5) K/uL Lymph # (Auto) 1.93 (1.2-3.4) K/uL [place] # (Auto) 0.42 (0.11-0.59) K/uL Eos # (Auto) 0.14 (0-0.5) K/uL Baso # (Auto) 0.02 (0-0.2) K/uL Sodium 136 (136-145) mmol/L Potassium 3.7 (3.5-5.1) mmol/L Chloride 103 (98-107) mmol/L Carbon Dioxide 27 (21-32) mmol/L Anion Gap 6.0 (3-11) BUN 8 (7-18) mg/dl Creatinine 0.84 (0.6-1.4) mg/dl Est Cr Clr Drug Dosing 118.5 ml/min Est GFR ( Amer) 105.7 Est GFR (Non-Af Amer) 91.2 BUN/Creatinine Ratio 9.2 L (10-20) Glucose 99 (70-99) mg/dl Calcium 8.7 (8.5-10.1) mg/dl Total Bilirubin 0.9 (0.2-1) mg/dl AST 35 (15-37) U/L ALT 85 H (12-78) U/L Alkaline Phosphatase 52 (45-117) U/L Troponin I < 0.015 < 0.015 (0-0.045) ng/ml Total Protein 7.8 (6.4-8.2) gm/dl Albumin 3.8 (3.4-5.0) gm/dl Globulin 4.0 (2.5-4.0) gm/dl Albumin/Globulin Ratio 1.0 (0.9-2) Lipase 97 (73-393) U/L Imaging Data Radiologist's Impression: Radiology results as stated below per my review and the radiologist's interpretation: CT abd pelvis IV con only CLINICAL HISTORY: Epigastric pain. Recent endoscopy. COMPARISON STUDY: January 30, 2019 TECHNIQUE: The patient was scanned in a dynamic helical fashion during intravenous administration of 93 cc of Optiray 320. A dose lowering technique was utilized adhering to the principles of ALARA. CT DOSE: 1116.07 mGycm FINDINGS: Lower chest: There is minimal basilar atelectasis/scarring. There are no signif icant pleural effusions. There is no pneumomediastinum visualized at the lung bases. Liver: There is hepatic steatosis. No focal hepatic masses are visualized. Gallbladder: Surgically absent Spleen: Normal in size and attenuation. Pancreas: Unremarkable. Adrenal glands: Unremarkable. Kidneys: There are bilateral renal cysts, the largest of which measures 4 cm and arises from the lower pole of the right kidney. There is no hydronephrosis. Bowel: There are no transition zones to indicate bowel obstruction. The appendix appears normal. There is no acute diverticulitis. Peritoneum: There is no intraperitoneal free air or abdominal ascites. There are small fat-containing inguinal hernias. There is a tiny fat-containing umbilical hernia. Vasculature: The abdominal aorta is normal in course and caliber. Adenopathy: None. Pelvic viscera: There is mild prostatic enlargement. There are prostatic calcifications present. Skeletal structures: No destructive osseous lesions are seen. IMPRESSION: 1. No acute intra-abdominal or pelvic findings 2. No evidence of bowel obstruction. No evidence of free air 3. Normal appendix. No evidence of acute diverticulitis 4. No acute inflammatory changes 5. Hepatic steatosis 6. Bilateral renal cysts ACT 112: Negative or not required by law. Electronically signed by: Roberto Regalado M.D. 04/16/2019 8:18 PM XR chest 1V portable CLINICAL HISTORY: Epigastric pain COMPARISON STUDY: 09/16/2015 FINDINGS: The heart remains enlarged. There are postsurgical changes of a midline sternotomy. There is no failure. There is no lobar consolidation. There are no pleural effusions. There are subsegmental atelectatic changes at both lung bases.[There is no free intraperitoneal air. IMPRESSION: Cardiomegaly and basilar atelectasis. No acute findings. ACT 112: Negative or not required by law. Electronically signed by: Roberto Regalado M.D. 04/16/2019 7:23 PM ECG Data Attestation: I personally reviewed and interpreted this ECG as follows: Indication: + abdominal pain Rate (beats per minute): 64 Rhythm: + sinus rhythm ECG Intervals/blocks: + Right Bundle branch block (incomplete) and + Normal QT-c (441) ECG ST segments: no ST elevation ECG Findings: + PVCs Blood Pressure Blood Pressure Findings: Elevated blood pressure Blood Pressure Disposition: further management by hospitalist VASU Donaldson There is no leukocytosis or concerning anemia. No significant electrolyte abnormality or kidney failure. No worrisome liver enzyme elevation. No evidence for pancreatitis. EKG shows a sinus rhythm with PVCs, no acute ischemia. Cardiac enzyme testing x1 is not consistent with acute cardiac injury. Urinalysis does not show infection. Chest film does not show free air or pneumonia. Abdominal and pelvis CT does not show any evidence for free air or bowel obstruction, no evidence for diverticulitis. The patient presents with epigastric abdominal and lower chest pain. Initially, he seemed to describe the pain as a burning that would worsen at times with eating. Later on during his ED stay, he felt the pain worsened with exertion and felt better with rest. He does have a history of coronary disease. The patient initially was given IV Pepcid. This did not really help his discomfort. He received IV morphine, IV Zofran. He was given oral aspirin and then some Nitropaste. He received a dose of oral Carafate. He did receive some IV saline. At this point, I am not certain if this is gastrointestinal pain or cardiac isc hemia. He presents with a story that is potentially consistent with both. Given his history, given his complaints, I do think a hospital stay for further cardiac work-up/GI work-up would be in order. I did discuss the case with the patient's on-call GI service. They recommended increasing the Prilosec to twice a day and adding Carafate twice a day. I talked to the patient and case management. The on-call hospitalist was consulted. Continuous Cardiac Monitoring: An order was placed for continuous cardiac monitoring. The monitor shows a rate of 76 with a sinus rhythm with PVCs. Impression & Plan Chest pain, precordial, Abdominal pain, epigastric, Chest pain, exertional Discharge Plan Visit Data *Final* Discharge Date/Time: 04/16/19 23:11 Chief Complaint: Abdominal Pain Stated Complaint: STOMACH PAINS ED Provider: Yaniv Crenshaw Discharge Problem: Chest pain, precordial, Abdominal pain, epigastric, Chest pain, exertional Patient Disposition: Admitted As Inpatient Discharge Instructions Interventions: ED Discharge Assessment Last Done: 04/16/19 23:11 The scribe's documentation has been prepared under my direction and personally reviewed by me in its entirety. I confirm that the note above accurately reflects all work, treatment, procedures, and medical decision making performed by me.
[2019-04-17] MEDS ORDERED: ACETAMINOPHEN 325 MG TAB PO PRN
[2019-04-17] MEDS ORDERED: PROMETHAZINE HCL 12.5 MG in SODIUM CHLORIDE 0.9% 50 ML IV PRN
[2019-04-17] MEDS ORDERED: NSS + 20MEQ KCL 20 MEQ/1,000 ML BAG IV ONE
[2019-04-17] MEDS ORDERED: NITROGLYCERIN SL 0.4 MG/TAB TAB SL PRN
[2019-04-17] MEDS ORDERED: MoRPHine SULFATE 4 MG/ML 1 ML CARP\\VIAL IV PRN
[2019-04-17] MEDS ORDERED: TRAMADOL HCL 50 MG TABLET PO PRN
[2019-04-17] MEDS: AMLODIPINE BESYLATE 5 MG TAB PO SCH ×3 (00:20→20:52)
[2019-04-17] MEDS: PANTOprazole 40 MG TAB PO SCH ×3 (00:20→20:51)
[2019-04-17] MEDS ORDERED: POTASSIUM CHLORIDE 20 MEQ TABCR PO STA (01:01)
[2019-04-17 01:04] LABS: Appearance Urine Clear (Clear); Bilirubin Urine Negative (Negative); Blood Urine Negative (Negative); Color Urine Yellow; Glucose Urine UA Negative (Negative); Ketones Urine Negative (Negative); Leukocyte Esterase Urine Negative (Negative); Nitrite Urine Negative (Negative); Protein Urine Negative (Negative); Specific Gravity Urine 1.036 (1.000-1.030); Urobilinogen Urine Negative (Negative)
[2019-04-17 01:20] LABS: Magnesium 1.8 mg/dl (1.8-2.4)
[2019-04-17] MEDS ORDERED: MAGNESIUM SULFATE / D5W 1 GM/100 ML BAG IV ONE (04:07)
[2019-04-17 06:23] LABS: Basophils # (auto) 0.03 K/uL (0-0.2); Basophils % (auto) 0.9 %; Eosinophils # (auto) 0.15 K/uL (0-0.5); Eosinophils % (auto) 4.5 %; Hematocrit (blood only) 42.5 % (42-52); Hemoglobin 14.1 g/dL (14.0-18.0); Lymphocytes # (auto) 1.33 K/uL (1.2-3.4); Lymphocytes % (auto) 39.7 %; Mean Corpuscular Hemoglobin 30.5 pg (25-34); Mean Corpuscular Hgb Conc 33.2 g/dL (32-36); Mean Platelet Volume 9.9 fL (7.4-10.4); Monocytes # (auto) 0.43 K/uL (0.11-0.59); Monocytes % (auto) 12.8 %; Neutrophils # (auto) 1.41 K/uL (1.4-6.5); Neutrophils % (auto) 42.1 %; Platelet Count 160 K/uL (130-400); RDW Coefficient of Variation 13.2 % (11.5-14.5); RDW Standard Deviation 44.2 fL (36.4-46.3); Red Blood Count 4.62 M/uL (4.7-6.1); White Blood Count 3.35 K/uL (4.8-10.8)
[2019-04-17 06:44] LABS: Partial Thromboplastin Time 26.7 Seconds (21.0-31.0)
[2019-04-17 06:48] LABS: BUN Creatinine Ratio 8.9 (10-20); Blood Urea Nitrogen 8 mg/dl (7-18); Calcium 8.4 mg/dl (8.5-10.1); Carbon Dioxide 29 mmol/L (21-32); Chloride 104 mmol/L (98-107); Creatinine Clr Calc Pharmacy 114.4 ml/min; Est GFR (African American) 104.2; Est GFR (Non-African American) 89.9; Glucose 105 mg/dl (70-99); Potassium 3.9 mmol/L (3.5-5.1); Sodium 138 mmol/L (136-145)
[2019-04-17 06:52] LABS: Chol HDL Ratio 4; Cholesterol 139 mg/dl (0-200); HDL Cholesterol 38 mg/dl; LDL Cholesterol Calculated 81 mg/dl; Triglycerides 101 mg/dl (0-150); Troponin I < 0.015 ng/ml (0-0.045); VLDL Cholesterol 20 mg/dl
[2019-04-17] MEDS ORDERED: ISOSORBIDE DINITRATE 20 MG TAB PO SCH (07:00)
[2019-04-17] MEDS ORDERED: PERFLUTREN LIPID MICROSPHERE (DEFINITY) IV ONE (07:20)
[2019-04-17] MEDS: ENOXAPARIN INJ 40 MG/0.4 ML SYR SQ SCH (08:28)
[2019-04-17] MEDS: ASPIRIN 81 MG ECTAB PO SCH (08:28)
[2019-04-17] MEDS: LOSARTAN POTASSIUM 50 MG TAB PO SCH (08:28)
--- NOTE | 2019-04-17 11:50 | Cardiology Consultation ---
Date of Consultation April 17, 2019 Assessment & Plan (1) Chest pain, precordial: (2) Abdominal pain, epigastric: (3) Exertional angina: (4) Ischemic cardiomyopathy: (5) CAD (coronary artery disease): 64-year-old patient presents to the ER with episode of recurrent epigastric and chest discomfort at rest. Discomfort improved with addition of nitro, famotidine, Carafate in the ER. Tolerating current antianginal medications including amlodipine and isosorbide dinitrate twice daily. Recent cardiac catheterization revealed severe [place] vessel disease not amenable to PCI. Cardiac enzymes are undetectable x3 sets. Resting 2D transthoracic echocardiogram stable at this time. No unstable dysrhythmias per telemetry. I long discussion with the patient regarding his chest discomfort. It is unclear whether his atypical epigastric and chest pain was cardiac related on admission. It appears his exertional anginal pattern is stable, able to walk approximately 100 yards. Recommend continued medical management. Titrate isosorbide dinitrate to 20 mg 3 times daily. I have ordered Ranexa after a long discussion with the patient. He is concerned regarding potential cost. Will request social service input regarding potential support. Patient is currently chest pain-free. Discussed maintaining hospitalization for additional 24 hours for observation, however, patient prefers discharge at this time. Directed to return to the ER with recurrent symptoms refractory to me dical therapy/sublingual nitro. Thank you for allowing to participate in the care of your patient. History of Present Illness Reason for Consultation: Chest pain, coronary disease, prior coronary artery bypass grafting Requesting Physician: Dr. Aviles Attending Physician: Nitish Aviles MD History of Present Illness 64-year-old Georgian-speaking patient presented to the emergency department with chest pain. Interview conducted with online separator operator shellfish meats. Patient describes pain in his epigastric region and chest. Discomfort occurred at rest. Some improvement with outpatient proton pump inhibitor. Currently under evaluation by gastroenterology regarding GERD and esophageal spasm. Patient reports a second type of chest discomfort associated with ambulation. Says he can typically walk approximately 100 yards and then needs a rest. This discomfort is unchanged. He voices frustration with recurrent chest pain. Chest pain improved in the ER with treatment with Carafate, famotidine, and sublingual nitroglycerin. He was able to sleep throughout the night. Chest pain-free this morning. No dysrhythmias on telemetry. Cardiac enzymes are undetectable. Preliminary review of resting 2D transthoracic echocardiogram reveals no new regional wall motion abnormalities with evidence of posterior scar, preserved LV systolic function, no significant valvular pathology. Patient voices frustration with cost of medications. Currently spending $60 per month on medications. Notes history of "allergy" to statin therapy. There is also a documented intolerance to beta-yonas therapy. States he is currently tolerating amlodipine, isosorbide monohydrate, losartan, and daily aspirin. Recent history significant for January 2019 cardiac catheterization due to blayne cendo angina. Cath report reveals severe [place] vessel disease not amenable to PCI, with patent bypass grafts. Allergies Allergy/AdvReac Type Severity Reaction Status Date / Time metoprolol Allergy Severe SHORTNESS Verified 04/16/19 19:19 OF BREATH-"STUFFY" NOSE carvedilol Allergy Unknown UNKNOWN Verified 04/16/19 19:19 REACTION ezetimibe [From Zetia] Allergy Unknown UNKNOWN Verified 04/16/19 19:19 REACTION pravastatin Allergy Unknown UNKNOWN Verified 04/16/19 19:19 REACTION Penicillins AdvReac Unknown "RENAL" Verified 04/16/19 19:19 PAIN Home Medications Home Medications Medication Instructions Recorded Confirmed Type losartan 50 mg PO DAILY 01/30/19 04/16/19 History amlodipine 2.5 mg PO BID #0 tab 02/10/19 04/16/19 Rx aspirin [Aspir-81] 81 mg PO DAILY 02/10/19 04/16/19 History isosorbide dinitrate 20 mg PO BID@0700,1200 #30 tab 02/11/19 04/16/19 Rx ammonium lactate [Skin Treatment] 1 applic TOPICAL UD 04/16/19 04/16/19 History omeprazole 20 mg PO BID 04/16/19 04/16/19 History silver sulfadiazine [SSD] 1 applic TOPICAL DAILY 04/16/19 04/16/19 History urea 1 applic TOPICAL DAILY 04/16/19 04/16/19 History Patient History Medical History CAD (coronary artery disease) (Chronic) S/P CABG X4 (2001)- MAZARIEGOS-DX, SVG-LAD, SVG-OM, SVG- PDA AT [place] Dyslipidemia (Chronic) Gastritis (Chronic) PRESCRIBED PPI BY GI GERD (gastroesophageal reflux disease) (Chronic) Hearing deficit (Chronic) HEARING AIDS HTN (hypertension) (Chronic) Insomnia Ischemic cardiomyopathy (Chronic) Numbness of leg LLE Obesity (Chronic) Osteoarthritis Prediabetes (Chronic) Surgical History History of cardiac cath 2012 [facility] History of cholecystectomy 05/17/1819 Grade 1 view with Glidescope 3 History of colonoscopy History of coronary artery bypass graft S/P CABG (2001) History of esophagogastroduodenoscopy (EGD) History of fracture of finger FRACTURE REPAIR; SUBSEQUENT I&D, LACERATION REPAIR OF OPEN LEFT 2ND DIGIT FRACTURE= 01/09/16= LMA#5 AT [facility] History of tonsillectomy History of tooth extraction Family History Other No pertinent family history Social History Preferred Language: Georgian Communication Ability: Effective Pet Nutrition Specialist Required: No Beliefs That Will Affect Care: None Current Living Situation: Spouse Current Living Situation Comment: Other Information That Helps Us Care for You: No Feels Safe at Home: Yes Safety Concerns: Feels Safe At This Time Smoking Status: Never smoker Do You Dip or Chew Tobacco: No ; Second Hand Exposure: No ; Tobacco Cessation Education Requested by Patient: No Hx Alcohol Use: No Hx Substance Use: No Review of Systems Review of Systems: All systems reviewed & are unremarkable except as noted in HPI & below Physical Exam Constitutional: well developed, well nourished and + obese Respiratory: normal respiratory effort, lungs clear to auscultation Cardiovascular: Rate/Rhythm: regular rate and regular rhythm Heart Sounds: normal S1 and normal S2; no gallop, no murmur and no cardiac rub Vessels: no JVD Gastrointestinal (Abdomen): normal bowel sounds, soft, nontender, no hepatosplenomegaly Musculoskeletal: no cyanosis or clubbing, extremities motor strength 5/5 Skin: no rashes, warm and dry Neurologic: moves all extremities; no focal motor deficits Psychiatric: Orientation: alert and oriented x 3 Mood: + irritable mood Insight: good insight Results & Data ([facility]) Vital Signs (Past 12 Hours) Vital Signs Temp Pulse Pulse Resp BP BP Pulse Ox 04/17/19 08:31 36.8 C 70 22 106/60 95 04/17/19 08:00 71 04/17/19 03:15 36.5 C 61 16 135/78 93 04/17/19 00:20 65 04/17/19 00:15 36.8 C 65 18 127/76 93 (1) CAD (coronary artery disease) Coronary Disease-Associated Artery/Lesion type: [place] artery [place] vs. transplanted heart: [place] tribe heart Associated angina: with stable angina Qualified Code(s): I25.118 - Atherosclerotic heart disease of [place] tribe coronary artery with other forms of angina pectoris
[2019-04-17] MEDS: RANOLAZINE 500 MG ER TAB PO SCH ×2 (13:01→20:51)
[2019-04-17] MEDS: ISOSORBIDE DINITRATE 20 MG TAB PO SCH ×2 (13:01→17:22)
--- NOTE | 2019-04-17 14:14 | Electrocardiogram Report ---
Test Reason : Blood Pressure : / mmHG Vent. Rate : 064 BPM Atrial Rate : 064 BPM P-R Int : 160 ms QRS Dur : 110 ms QT Int : 428 ms P-R-T Axes : 027 004 080 degrees QTc Int : 441 ms Sinus rhythm with occasional Premature ventricular complexes Incomplete right bundle branch block Borderline ECG When compared with ECG of 11-FEB-2019 06:33, Premature ventricular complexes are now Present Confirmed by David Hoyos ([id number]) on 04/17/2019 2:14:36 PM Referred By: REFERRED SELF Confirmed By:David Hoyos
--- NOTE | 2019-04-17 14:20 | Electrocardiogram Report ---
Test Reason : Blood Pressure : / mmHG Vent. Rate : 068 BPM Atrial Rate : 068 BPM P-R Int : 142 ms QRS Dur : 106 ms QT Int : 410 ms P-R-T Axes : 065 049 003 degrees QTc Int : 435 ms Normal sinus rhythm Possible Inferior infarct , age undetermined Abnormal ECG When compared with ECG of 16-APR-2019 18:45, (unconfirmed) Premature ventricular complexes are no longer Present Incomplete right bundle branch block is no longer Present Confirmed by David Hoyos ([id number]) on 04/17/2019 2:20:14 PM Referred By: REFERRED SELF Confirmed By:David Hoyos
--- NOTE | 2019-04-17 22:41 | Hospitalist Progress Note ---
Date of Service April 17, 2019 Assessment & Plan (1) Chest pain, precordial: Unstable angina hx CAD status post CABG History isosorbide intolerance/noncompliance as per records Symptoms can be attributed to patient intolerance for optimal medical regimen (beta-yonas/statin/nitrate intolerance) for ischemic heart disease. hypertension, stable hyperlipidemia, statin intolerance Continue Aspirin for secondary CAD prevention Follow troponin TTE, Cardiology consult RE unstable angina Reattempt Isosorbide Rx Cardiology discussed with the patient recurrent chest discomfort and treatment plan - chest discomfort improved with addition of nitro, famotidine, Carafate in the ER (patient is not clear himself which one of the medications helped) - tolerating current antianginal medications including amlodipine and isosorbide dinitrate twice daily - recent cardiac catheterization revealed severe [place] vessel disease not amenable to PCI - Cardiac enzymes are undetectable x3 sets. Resting 2D transthoracic echocardiogram stable at this time. No unstable dysrhythmias per telemetry. - unclear whether his atypical epigastric and chest pain was cardiac related on admission. It appears his exertional anginal pattern is stable, able to walk approximately 100 yards. Recommend continued medical management. - Titrate isosorbide dinitrate to 20 mg 3 times daily. Ranexa also ordered by cardiology - recommend maintaining hospitalization for additional 24 hours for observation Possible GERD/esophageal spasm as per records, some improvement with outpatient PPI regimen Continue home PPI Prediabetes as per records, outpatient hemoglobin A1c of 5.8 2018 past tobacco abuse DVT prophylaxis per Lovenox subcu Full code Patient's son, Mr. Parth Arias, can be contacted at #[phone]. Admission and Anticipated Discharge Date Admission Date: April 17, 2019 Subjective Patient sitting up in bed, in no acute distress. Tire Spotter services obtained for interview. Currently denies any chest pain, shortness of breath, abdominal pain, nausea, vomiting. Says that he had substernal chest pain, that resolved in the ED. Denies any radiation of the chest pain to extremities or neck or back. Reports that sometimes it feels like dyspepsia, being evaluated by GI. Seen by cardiology today, per recommendation, reasonable for patient to be observed for 24 more hours. Patient is open to this. Medications adjusted. Review of Systems Review of Systems: All systems reviewed & are unremarkable except as noted in HPI & below Constitutional: no fever and no chills Respiratory: no cough and no dyspnea Cardiovascular: no chest pain and no palpitations Gastrointestinal: no abdominal pain, no nausea and no vomiting Physical Exam Physical Exam: GENERAL: Elderly obese male, sitting up in bed, in no acute distress HEENT: Healed forehead scar, pink palpebral conjunctivae, EOMI, PERRL NECK : Supple, short neck, no tenderness CHEST : CTAB, no rhonchi crackles or wheezing noted, no tenderness to palpation HEART : RRR, no obvious murmurs ABDOMEN: Positive bowel sounds, obese, soft, nontender, some distention EXTREMITIES : No LE swelling/tenderness, moves extremities spontaneously SKIN: Normal color, warm NEUROLOGIC : Alert and oriented, speech fluent, no facial asymmetry, moves extremities spontaneously Results & Data ([facility]) Vital Signs (Past 12 Hours) Vital Signs Temp Pulse Pulse Resp BP Pulse Ox 04/17/19 19:17 37.0 C 64 20 121/64 94 04/17/19 15:52 36.8 C 68 20 106/58 L 93 04/17/19 15:20 77 04/17/19 11:42 36.9 C 72 24 137/78 92 Laboratory Results 04/17/19 04/17/19 04/17/19 Range/Units 05:38 05:38 05:38 WBC 3.35 L (4.8-10.8) K/uL RBC 4.62 L (4.7-6.1) M/uL Hgb 14.1 (14.0-18.0) g/dL Hct 42.5 (42-52) % MCV 92.0 (80-100) fL MCH 30.5 (25-34) pg MCHC 33.2 (32-36) g/dL RDW Std Deviation 44.2 (36.4-46.3) fL RDW Coeff of Del 13.2 (11.5-14.5) % Plt Count 160 (130-400) K/uL MPV 9.9 (7.4-10.4) fL Immature Gran % (Auto) 0.0 % Neut % (Auto) 42.1 % Lymph % (Auto) 39.7 % Rice % (Auto) 12.8 % Eos % (Auto) 4.5 % Baso % (Auto) 0.9 % Immature Gran # (Auto) 0.00 (0.00-0.02) K/uL Neut # (Auto) 1.41 (1.4-6.5) K/uL Lymph # (Auto) 1.33 (1.2-3.4) K/uL Rice # (Auto) 0.43 (0.11-0.59) K/uL Eos # (Auto) 0.15 (0-0.5) K/uL Baso # (Auto) 0.03 (0-0.2) K/uL APTT 26.7 (21.0-31.0) Seconds PTT Ratio 1.0 Sodium 138 (136-145) mmol/L Potassium 3.9 (3.5-5.1) mmol/L Chloride 104 (98-107) mmol/L Carbon Dioxide 29 (21-32) mmol/L Anion Gap 5.0 (3-11) BUN 8 (7-18) mg/dl Creatinine 0.87 (0.6-1.4) mg/dl Est Cr Clr Drug Dosing 114.4 ml/min Est GFR ( Amer) 104.2 Est GFR (Non-Af Amer) 89.9 BUN/Creatinine Ratio 8.9 L (10-20) Glucose 105 H (70-99) mg/dl Calcium 8.4 L (8.5-10.1) mg/dl Magnesium (1.8-2.4) mg/dl Troponin I < 0.015 (0-0.045) ng/ml Triglycerides 101 (0-150) mg/dl Cholesterol 139 (0-200) mg/dl LDL Cholesterol, Calc 81 mg/dl VLDL Cholesterol, Calc 20 mg/dl HDL Cholesterol 38 mg/dl Cholesterol/HDL Ratio 4 Urine Color Urine Appearance (Clear) Urine pH (4.5-7.5) Ur Specific [place] (1.000-1.030) Urine Protein (Negative) Urine Glucose (UA) (Negative) Urine Ketones (Negative) Urine Blood (Negative) Urine Nitrite (Negative) Urine Bilirubin (Negative) Urine Urobilinogen (Negative) Ur Leukocyte Esterase (Negative) 04/17/19 04/16/19 Range/Units 00:44 22:22 WBC (4.8-10.8) K/uL RBC (4.7-6.1) M/uL Hgb (14.0-18.0) g/dL Hct (42-52) % MCV (80-100) fL MCH (25-34) pg MCHC (32-36) g/dL RDW Std Deviation (36.4-46.3) fL RDW Coeff of Del (11.5-14.5) % Plt Count (130-400) K/uL MPV (7.4-10.4) fL Immature Gran % (Auto) % Neut % (Auto) % Lymph % (Auto) % Rice % (Auto) % Eos % (Auto) % Baso % (Auto) % Immature Gran # (Auto) (0.00-0.02) K/uL Neut # (Auto) (1.4-6.5) K/uL Lymph # (Auto) (1.2-3.4) K/uL Rice # (Auto) (0.11-0.59) K/uL Eos # (Auto) (0-0.5) K/uL Baso # (Auto) (0-0.2) K/uL APTT (21.0-31.0) Seconds PTT Ratio Sodium (136-145) mmol/L Potassium (3.5-5.1) mmol/L Chloride (98-107) mmol/L Carbon Dioxide (21-32) mmol/L Anion Gap (3-11) BUN (7-18) mg/dl Creatinine (0.6-1.4) mg/dl Est Cr Clr Drug Dosing ml/min Est GFR ( Amer) Est GFR (Non-Af Amer) BUN/Creatinine Ratio (10-20) Glucose (70-99) mg/dl Calcium (8.5-10.1) mg/dl Magnesium 1.8 (1.8-2.4) mg/dl Troponin I < 0.015 (0-0.045) ng/ml Triglycerides (0-150) mg/dl Cholesterol (0-200) mg/dl LDL Cholesterol, Calc mg/dl VLDL Cholesterol, Calc mg/dl HDL Cholesterol mg/dl Cholesterol/HDL Ratio Urine Color Yellow Urine Appearance Clear (Clear) Urine pH 6.0 (4.5-7.5) Ur Specific [place] 1.036 H (1.000-1.030) Urine Protein Negative (Negative) Urine Glucose (UA) Negative (Negative) Urine Ketones Negative (Negative) Urine Blood Negative (Negative) Urine Nitrite Negative (Negative) Urine Bilirubin Negative (Negative) Urine Urobilinogen Negative (Negative) Ur Leukocyte Esterase Negative (Negative) Medications Administered Current Inpatient Medications Acetaminophen (Tylenol) 650 mg PO Q4H PRN PRN Reason: Pain or Fever Stop: 05/17/19 00:00 Amlodipine Besylate (Norvasc) 2.5 mg PO BID [facility] Stop: 05/17/19 00:00 Last Admin: 04/17/19 20:52 Dose: 2.5 mg Documented by: Aspirin (Ecotrin Ectab) 81 mg PO DAILY [facility] Stop: 05/17/19 08:59 Last Admin: 04/17/19 08:28 Dose: 81 mg Documented by: Enoxaparin Sodium (Lovenox) 40 mg SQ QAM [facility] Stop: 05/17/19 08:59 Last Admin: 04/17/19 08:28 Dose: 40 mg Documented by: Promethazine HCl 12.5 mg/ (Sodium Chloride) 50.5 mls @ 202 mls/hr IV Q6H PRN PRN Reason: Nausea And Vomiting Stop: 05/17/19 00:00 Isosorbide Dinitrate (Isordil) 20 mg PO TID@0700,1200,1700 [facility] Stop: 05/17/19 11:59 Last Admin: 04/17/19 17:22 Dose: 20 mg Documented by: Losartan Potassium (Cozaar) 50 mg PO DAILY [facility] Stop: 05/17/19 08:59 Last Admin: 04/17/19 08:28 Dose: 50 mg Documented by: Morphine Sulfate (Morphine Sulfate) 4 mg IV Q4H PRN PRN Reason: Pain Stop: 05/01/19 00:00 Nitroglycerin (Nitrostat) 0.4 mg SL UD PRN PRN Reason: Chest Pain Stop: 05/17/19 00:00 Pantoprazole Sodium (Protonix) 40 mg PO BID [facility] Stop: 05/17/19 00:00 Last Admin: 04/17/19 20:51 Dose: 40 mg Documented by: Ranolazine (Ranexa) 500 mg PO BID [facility] Stop: 05/17/19 11:44 Last Admin: 04/17/19 20:51 Dose: 500 mg Documented by: Tramadol HCl (Ultram) 25 - 50 mg PO Q4H PRN PRN Reason: Pain Stop: 05/17/19 00:00
[2019-04-18] MEDS: ISOSORBIDE DINITRATE 20 MG TAB PO SCH ×2 (05:44→11:33)
[2019-04-18 05:59] LABS: Hematocrit (blood only) 42.2 % (42-52); Hemoglobin 14.7 g/dL (14.0-18.0); Mean Corpuscular Hemoglobin 31.7 pg (25-34); Mean Corpuscular Hgb Conc 34.8 g/dL (32-36); Mean Corpuscular Volume 91.1 fL (80-100); Mean Platelet Volume 9.5 fL (7.4-10.4); Platelet Count 168 K/uL (130-400); RDW Coefficient of Variation 13.1 % (11.5-14.5); RDW Standard Deviation 43.6 fL (36.4-46.3); Red Blood Count 4.63 M/uL (4.7-6.1); White Blood Count 3.84 K/uL (4.8-10.8)
[2019-04-18 06:21] LABS: Calcium 8.6 mg/dl (8.5-10.1); Creatinine Clr Calc Pharmacy 88.6 ml/min; Est GFR (African American) 79.8; Est GFR (Non-African American) 68.8; Magnesium 2.3 mg/dl (1.8-2.4); Potassium 4.2 mmol/L (3.5-5.1)
[2019-04-18] MEDS: ASPIRIN 81 MG ECTAB PO SCH (07:30)
[2019-04-18] MEDS: PANTOprazole 40 MG TAB PO SCH (07:30)
[2019-04-18] MEDS: AMLODIPINE BESYLATE 5 MG TAB PO SCH (07:30)
[2019-04-18] MEDS: RANOLAZINE 500 MG ER TAB PO SCH (07:30)
[2019-04-18] MEDS: LOSARTAN POTASSIUM 50 MG TAB PO SCH (07:31)
[2019-04-18] MEDS: ENOXAPARIN INJ 40 MG/0.4 ML SYR SQ SCH (09:57)
--- NOTE | 2019-04-18 10:04 | Cardiology Progress Note ---
Date of Service April 18, 2019 Assessment & Plan (1) Chest pain, precordial: (2) Abdominal pain, epigastric: (3) Exertional angina: (4) Ischemic cardiomyopathy: (5) CAD (coronary artery disease): 64-year-old patient presents to the ER with episode of recurrent epigastric and chest discomfort at rest. Discomfort improved with addition of nitro, famotidine, Carafate in the ER. Tolerating current antianginal medications including amlodipine and isosorbide dinitrate twice daily. Recent cardiac catheterization revealed severe [place] pass vessel disease not amenable to PCI. Cardiac enzymes are undetectable x3 sets. Resting 2D transthoracic echocardiogram stable at this time. No unstable dysrhythmias per telemetry. 04/17/2019 discussed with the aid of forest pathology teacher once again chronic ischemic heart disease with class III angina pectoris with no surgical or interventional targets by recent diagnostic cardiac catheterization. Ultimate goal will be to control symptoms through medical therapies. Patient understands Plan: Continue outpatient medications as ordered. Add Ranexa 500 mg twice per day cost per review $7 or less per month. Patient to use sublingual nitroglycerin prior to ambulation and exertion to extend exercise tolerance. Patient agrees to initiation of low-dose statin. Will recommend rosuvastatin 5 mg/day, low dose due to past statin intolerance Patient wishes to be discharged today appropriately Follow-up with cardiology myself in approximately 3 weeks Subjective Patient seen and examined, chart, medications, telemetry reviewed. Coupon Manifest Clerk services obtained for interview. Currently denies any chest pain, shortness of breath, dizziness or lightheadedness. Physical Exam Constitutional: WD/WN, vitals as above + obese Eyes: PERRL, conjunctivae normal, anicteric sclerae ENMT: external ear and nose normal, oropharynx normal Neck: trachea midline, no thyromegaly + thick neck Respiratory: normal respiratory effort, lungs clear to auscultation Cardiovascular: Rate/Rhythm: regular rate and regular rhythm Heart Sounds: normal S1 and normal S2; no gallop and no murmur Palpation: normal PMI Vessels: normal carotid upstroke and radial pulses present; no JVD and no carotid bruit Extremities: no edema Gastrointestinal (Abdomen): normal bowel sounds, soft, nontender, no hepatosplenomegaly Musculoskeletal: no cyanosis or clubbing, extremities motor strength 5/5 Skin: no rashes, warm and dry Neurologic: PERRL, EOMI, accommodation nl, no face palsy, no dysarthria Psychiatric: A+Ox3, euthymic affect Results & Data Vital Signs (Past 12 Hours) Vital Signs Temp Pulse Pulse Resp BP Pulse Ox 04/18/19 07:10 36.8 C 63 18 103/66 94 04/18/19 03:39 36.9 C 66 16 130/73 93 04/18/19 00:05 60 04/17/19 22:54 36.7 C 71 16 138/74 93 Laboratory Results Laboratory Results - last 24 hr 04/18/19 04/18/19 05:42 05:42 WBC 3.84 L RBC 4.63 L Hgb 14.7 Hct 42.2 MCV 91.1 MCH 31.7 MCHC 34.8 RDW Std Deviation 43.6 RDW Coeff of Del 13.1 Plt Count 168 MPV 9.5 Sodium 138 Potassium 4.2 Chloride 105 Carbon Dioxide 31 Anion Gap 2.0 L BUN 10 Creatinine 1.11 Est Cr Clr Drug Dosing 88.6 Est GFR ( Amer) 79.8 Est GFR (Non-Af Amer) 68.8 BUN/Creatinine Ratio 9.0 L Glucose 109 H Calcium 8.6 Magnesium 2.3 Diagnostic Findings 17-APR-2019 11:56:29 [facility]-MED[facility] ROUTINE RETRIEVAL Normal sinus rhythm RSR' or QR pattern in V1 suggests right ventricular conduction delay Borderline ECG When compared with ECG of 17-APR-2019 06:45, (unconfirmed) RSR' pattern in V1 is now Present Nonspecific T wave abnormality no longer evident in Inferior leads T wave inversion no longer evident in Lateral leads (1) CAD (coronary artery disease) Associated angina: with stable angina Coronary Disease-Associated Artery/Lesion type: false pass artery [place] vs. transplanted heart: false pass heart Qualified Code(s): I25.118 - Atherosclerotic heart disease of [place] coronary artery with other forms of angina pectoris
--- NOTE | 2019-04-18 12:08 | Discharge Summary ---
Date of Service April 18, 2019 Admission HPI Per Admitting Provider History obtained from patient, family, and records. History somewhat limited from patient secondary to language barrier. Medical history significant for CAD status post CABG, hypertension, hyperlipidemia, prediabetes as per records, possible GERD/esophageal spasm as per records, past tobacco abuse. Recent confinement January 2019 under Cardiology service for crescendo angina. Cardiac catheterization demonstrated severe [place] vessel disease without surgical or interventional targets. Recommendation was to intensify medical therapy for ischemic heart disease. Patient intolerant of home isosorbide Rx due to headache symptoms. Last month, patient noted epigastric discomfort. Some improvement with outpatient PPI Rx. GI sent patient for esophageal manometry and 24-hour pH testing a few days ago for esophageal spasm/GERD consideration. [place] [facility] 10 [place]. Patient still complaining of almost daily chest pain similar to heart attack episode with some shortness of breath. Recommendation for possible Ranexa if symptoms worsen in light of isosorbide intolerance. Patient brought to the ER for evaluation of epigastric discomfort and worsening chest pain complaints. Some relief of discomfort with sucralfate, famotidine, and nitro administration. MEDICAL HISTORY: As above. EGD 03/2018 showed hiatal hernia. SURGICAL HISTORY: CABG, cholecystectomy, tonsillectomy FAMILY HISTORY: Heart disease. Hypertension PERSONAL AND SOCIAL HISTORY: Past tobacco abuse. No chronic alcoholic beverages. Retired from factory work. Originally from [place]. Discharge Data Allergies Allergy/AdvReac Type Severity Reaction Status Date / Time metoprolol Allergy Severe SHORTNESS Verified 04/16/19 19:19 OF BREATH-"STUFFY" NOSE carvedilol Allergy Unknown UNKNOWN Verified 04/16/19 19:19 REACTION ezetimibe [From Zetia] Allergy Unknown UNKNOWN Verified 04/16/19 19:19 REACTION pravastatin Allergy Unknown UNKNOWN Verified 04/16/19 19:19 REACTION Penicillins AdvReac Unknown "RENAL" Verified 04/16/19 19:19 PAIN Consultations 04/16/19 20:55 ED Decision to Admit Stat 04/17/19 00:00 Consult Cardiology Routine Ordered Studies 04/16/19 18:31 CT abd pelvis IV con only Stat Discharge Plan Discharge Items Patient Disposition: Home - Self-Care Reason For Visit: CP Discharge Diagnosis: Chest pain Activity: As commented below Non-emergency contact: Primary Care Provider and Counter Dish Carrier Call non-emergency contact if: you have any medication questions and your symptoms worsen Follow-up/Referrals: PCP,NO [Primary Care Provider] - Diet: Heart Healthy Addtl Attending Provider Instructions: You will need to follow-up with cardiology in couple of weeks, the appointment will be scheduled for you. You should also follow-up with your primary care doctor in 1 week. One of your medications, isosorbide dinitrate, was increased from twice a day to 3 times a day. You were also started on one new medication, rosuvastatin, take it daily. It is also recommended that you take Ranexa, however we understand your financial concerns. 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 Pending Studies at Discharge: No Stand-Alone Forms: [facility], Smoking Cessation Medications and DC Order Prescriptions: New ranolazine [Ranexa] 500 mg Tablet Extended Release 12 Hr 500 mg PO BID 30 Days Qty: 60 RF: 0 rosuvastatin [Crestor] 5 mg Tablet 5 mg PO QAM 30 Days Qty: 30 RF: 0 Continued aspirin [Aspir-81] 81 mg Tablet,Delayed Release (Dr/Ec) 81 mg PO DAILY RF: 0 amlodipine 2.5 mg tablet 2.5 mg PO BID Qty: 0 RF: 0 silver sulfadiazine [SSD] 1 % cream 1 applic TOPICAL DAILY RF: 0 ammonium lactate [Skin Treatment] 12 % lotion 1 applic TOPICAL UD RF: 0 urea 40 % cream 1 applic TOPICAL DAILY RF: 0 omeprazole 20 mg capsule,delayed release(DR/EC) 20 mg PO BID RF: 0 losartan 50 mg tablet 50 mg PO DAILY RF: 0 Changed isosorbide dinitrate 20 mg Tablet 20 mg PO TID Qty: 30 RF: 0 Discharge Orders: Discharge Order (Routine); Ordered 04/18/19 Ordered By: Nitish Aviles Admission Data Admit Date/Time: 04/17/19 15:50 Attending Provider: Nitish Aviles Admit Provider: Levar Alexandra Primary Care Provider: PCP,NO Other Providers: Levar Alexandra ; Ezequiel Hay
[2019-04-18] MEDS ORDERED: RANOLAZINE 500 MG ER TAB PO SCH (21:00)
--- NOTE | 2019-04-18 22:40 | Electrocardiogram Report ---
Test Reason : Blood Pressure : / mmHG Vent. Rate : 067 BPM Atrial Rate : 067 BPM P-R Int : 152 ms QRS Dur : 112 ms QT Int : 418 ms P-R-T Axes : 030 007 085 degrees QTc Int : 441 ms Normal sinus rhythm RSR' or QR pattern in V1 suggests right ventricular conduction delay Possible Inferior infarct When compared with ECG of 17-APR-2019 06:45, RSR' pattern in V1 is now Present Nonspecific T wave abnormality no longer evident in Inferior leads T wave inversion no longer evident in Lateral leads Confirmed by Saulo Angel ([id number]) on 04/18/2019 10:40:27 PM Referred By: REFERRED SELF Confirmed By:Saulo Angel
[2019-04-19] MEDS ORDERED: ROSUVASTATIN CALCIUM 5 MG TAB PO SCH (09:00)
== END 2019-04-18 12:55 | disposition home or self-care (01) | DRG 303 ==
LOC: ED 18:11 → 2E 18:11